=== PATIENT | female | born 1950 | race Caucasian/White ===

== ENCOUNTER → 2021-02-20 | Outpatient (CLI) | payer MEDICARE, BC ==
--- NOTE | 2021-02-22 18:26 | RAD ---
DATE: 02/20/2021 EXAM: MAMMO STEVE SCREENING BILATERAL HISTORY: Screening COMPARISON: 08/17/2017, 09/22/2018, 10/10/2019 This study was interpreted with the benefit of Computerized Aided Detection (CAD). Breast Density: HETERO The breast parenchyma is heterogenously dense, which could reduce sensitivity of mammography. Breast parenchyma level C. FINDINGS: No mass, suspicious calcification, or architectural distortion in either breast. IMPRESSION: No evidence of malignancy. BI-RADS CATEGORY: 1 NEGATIVE RECOMMENDED FOLLOW-UP: 12M 12 MONTH FOLLOW-UP PQRS compliance statement: Patient information was entered into a reminder system with a target due date for the next mammogram. Mammography is a sensitive method for finding small breast cancers, but it does not detect them all and is not a substitute for careful clinical examination. A negative mammogram does not negate a clinically suspicious finding and should not result in delay in biopsying a clinically suspicious abnormality. "Our facility is accredited by the [employer] Mammography Program."
== END ==
LOC: MAMMO 09:37
PROVIDERS: ATTEND Family Medicine
DX: Z12.31 Encounter for screening mammogram for malignant neoplasm of breast (principal)
CPT/HCPCS: 77063; 77067

== ENCOUNTER → 2021-02-27 | Outpatient (CLI) | payer MEDICARE ==
--- NOTE | 2021-02-27 12:01 | RAD ---
US THYROID History: Hypothyroidism, post ablation Comparison: None. Technique: Multiple grayscale and color Doppler images of the thyroid gland were obtained. Findings: Right thyroid lobe: 3.9 x 1.4 x 1.4 cm. Left thyroid lobe: 3.4 x 1.2 x 0.8 cm. Isthmus: 0.2 cm. Heterogenous, hyperemic thyroid with multiple small nodules. Nodule #1. Maximum size: 0.7 cm; Other 2 dimensions 0.6 x 0.5 cm. Location: Right lower pole. ACR TI-RADS risk category: TR4 (4-6 points): FNA if 1.5 cm, follow-up if 1-1.4 cm in 1, 2, 3, and 5 y ears. Nodule #2. Maximum size: 1.2 cm; Other 2 dimensions 1.0 x 0.8 cm. Location: Lower left pole. ACR TI-RADS risk category: TR4 (4-6 points): FNA if 1.5 cm, follow-up if 1-1.4 cm in 1, 2, 3, and 5 y ears. IMPRESSION: 1. Heterogeneous hyperemic thyroid with moderately suspicious 1.2 cm left thyroid nodule for which f ollow-up ultrasound in 1, 2, 3 and 5 years is recommended. ACR Thyroid Imaging, Reporting And Data System (TI-RADS): White Paper Of The ACR TI-RADS Committee. J ournal of the [employer], volume 14, issue 5, pages 587-595 (February 2017). Electronically signed by: Tonio Mcallister MD (02/27/2021 11:59 AM) [facility]
[2021-02-27 19:47] LABS: FREE T4 1.15 ng/dL (0.76-1.46); THYROID STIM HORMONE (TSH) 0.978 uIU/mL (0.358-3.740)
== END ==
LOC: US 09:48
PROVIDERS: ATTEND Internal Medicine Endocrinology, Diabetes & Metabolism
DX: E04.1 Nontoxic single thyroid nodule (principal); E89.0 Postprocedural hypothyroidism
CPT/HCPCS: 76536; 84439; 84443

== ENCOUNTER 2021-06-28 12:17 | Emergency (ER) | payer MEDICARE ==
[~2021-06-28] VITALS: Ht 170.2 cm; Wt 70.5 kg
--- NOTE | 2021-06-28 12:46 | EKG ---
[address] [address] Test Date: 2021-06-28 Test Time: 12:24:15 Pat Name: DUNCAN SALGADO Department: Room: Gender: F Client Resource Specialist: SHERIE : 1950 Requested By: ASHLEY VOGEL Order Number: [id number] Reading MD: Measurements Intervals [place] Rate: 71 P: 52 [place]: 162 QRS: 23 QRSD: 78 T: 24 QT: 376 QTc: 409 Interpretive Statements SINUS RHYTHM R-S TRANSITION ZONE IN V LEADS DISPLACED TO THE RIGHT OTHERWISE NORMAL ECG RI6.02 No previous ECG available for comparison
--- NOTE | 2021-06-28 13:01 | PHYS DOC ---
Past History Additional Past Medical Histor: thyroid disease/goiter, seasonal allergies, Past Surgical History: Cholecystectomy, Hysterectomy, Other Additional Past Surgical Histo: cardiac stents General Adult EDM: Chief Complaint: CHEST PAIN HPI: HPI: Patient is a 70-year-old female coming in for 3 days of left upper quadrant and left chest "gurgling". Patient states it is just under her left breast and has only moved a little bit. In the upward direction from her left upper quadrant to her current location under her left breast. Patient states it is not painful and comes and goes throughout the day. Patient says that is not there at night when she is sleeping or in the morning when she wakes up but usually starts occurring after she takes her medications with food. States is not exacerbated by exercise. Is concerned because she has a history of MO with 3 stents. Denies any nausea or vomiting has had no change in bowel movements, denies any fevers. Has had both doses of her Covid vaccine. Has had abdominal surgical history of an open hysterectomy 20 years ago. No history of food allergies Review of Systems: Review of Systems: All other systems within normal limits except for as noted in the HPI Physical Exam: PE: Constitutional: Well developed, well nourished, no acute distress, non-toxic appearance. [] HENT: Normocephalic, atraumatic, bilateral external ears normal, nose normal. [] Eyes: PERRLA, conjunctiva normal, no discharge. [] Neck: No rigidity, supple, no stridor. [] Cardiovascular: Regular rate and rhythm, brisk cap refill [] Lungs & Thorax: Non labored symmetric respirations, no tachypnea or respiratory distress [] Abdomen: Soft, nondistended. Skin: Warm, dry, no erythema, no rash. [] Back: Unremarkable Extremities: No deformities, range of motion grossly intact, no lower extremity edema [] Neurologic: Alert and oriented X 3, no focal deficits noted. [] Psychologic: Affect normal, judgement normal, mood normal. [] Current Patient Data: Vital Signs: Vital Signs Date Time Temp Pulse Resp B/P (MAP) Pulse Ox O2 Delivery O2 Flow Rate FiO2 06/28/21 12:49 98.7 68 16 146/74 (98) 99 Room Air EKG: EKG: Sinus rhythm, heart rate 70 bpm choledochal axis, no ST elevation depression [] Radiology/Procedures: Radiology/Procedures: [address] [address] IMAGING REPORT Signed PATIENT: DUNCAN SALGADO ACCOUNT: [id number] : 1950 LOCATION: ER AGE: 70 SEX: F EXAM STATUS: REG ER ORD. PHYSICIAN: ASHLEY VOGEL MD REASON: LUQ/left chest discomfort - 75mls omni 300 PROCEDURE: CT CHEST ABD PELVIS W/CONTRAST EXAMINATION: CT chest, abdomen and pelvis with IV contrast. INDICATION:70 years, Female, left chest and left upper quadrant abdominal discomfort. TECHNIQUE: Axial CT images of the chest, abdomen and pelvis were obtained. Coronal and sagittal reformatted performed. COMPARISON: None. Exposure: One or more of the following individualized dose reduction techniques were utilized for this examination: 1. Automated exposure control 2. Adjustment of the mA and/or kV according to patient size 3. Use of iterative reconstruction technique. FINDINGS: CHEST: There is a 9 mm inferior pole left thyroid nodule with peripheral calcification (series 4 image 19). Esophagus is unremarkable. No lymphadenopathy in the chest by size criteria. Normal cardiac size with no pericardial effusion. Severe coronary artery atherosclerotic calcifications. Normal caliber thoracic aorta and pulmonary arteries. Aberrant right subclavian artery. Central airways are patent. No focal consolidation, pleural effusion or pneumothorax. There is a 3 mm pulmonary nodule in the right lower lobe (series 4 image 57). There is a 2 mm pulmonary nodule in the right middle lobe. Minimal left upper lobe paraseptal emphysema. Subsegmental atelectasis versus scarring in the lingula. ABDOMEN/PELVIS: Normal size and morphology of the liver with homogeneous enhancement. No suspicious focal hepatic lesion. Cholecystectomy. No biliary ductal dilation. Unremarkable spleen and pancreas. Nodular thickening of the left adrenal gland without discrete nodule. Right adrenal gland is unremarkable. No hydronephrosis or nephrolithiasis in either kidney. Subcentimeter hypodensities in both renal cortices, too small to characterize, statistically representing cysts. No bowel obstruction or wall thickening. Uncomplicated duodenal diverticulum. Normal appendix. Moderate aortoiliac atherosclerotic calcifications without significant narrowing or dilatation. Mesenteric arteries and portal vein are patent. No pneumoperitoneum or ascites. Multiple prominent upper abdominal and retroperitoneal lymph nodes, nonspecific. The largest measures approximately 7 mm. Mildly enlarged right external iliac lymph node measures 1.0 cm in short axis. Unremarkable urinary bladder. Hysterectomy changes. No suspicious pelvic masses. MUSCULOSKELETAL: No acute process process. Multilevel degenerative changes in thoracolumbar spine, worst at L5-S1. IMPRESSION: 1. No acute abnormality in the chest, abdomen or pelvis. 2. Few sub-5 mm pulmonary nodules in the right lower and middle lobes. Fleischner Society guidelines for management of incidental pulmonary nodule (Radiology 2017): Multiple solid nodules < 6 mm: LOW-RISK patient (minimal or absent history of smoking and other known risk factors): No routine follow-up HIGH-RISK patient (history of smoking or other known risk factors): Optional CT at 12 months. 3. Severe coronary artery atherosclerotic calcifications. 4. Multiple prominent to mildly enlarged abdominopelvic lymph nodes, nonspecific and most likely reactive. 5. A 9 mm inferior pole left thyroid nodule with peripheral calcification. Recommend nonemergent thyroid ultrasound for further evaluation. Electronically signed by: Timbo Khan MD (06/28/2021 2:41 PM) [id number] DICTATED AND SIGNED BY: TIMBO KHAN MD DATE: 06/28/21 1429 CC: ASHLEY VOGEL MD; YVETTE BRODY MD ~MTH0 0 [] Heart Score: C/O Chest Pain: Yes HEART Score for Chest Pain: HEART Score for Chest Pain Response (Comments) Value History Slighlty/Non-Suspicious 0 ECG Normal 0 Age > 65 2 Risk Factors >3 Risk Factors or Hx CAD 2 Troponin < Normal Limit 0 Total 4 Risk Factors: Risk Factors: DM, Current or recent (<one month) smoker, HTN, HLP, family history of CAD, obesity. Risk Scores: Score 0 - 3: 2.5% MACE over next 6 weeks - Discharge Home Score 4 - 6: 20.3% MACE over next 6 weeks - Admit for Clinical Observation Score 7 - 10: 72.7% MACE over next 6 weeks - Early Invasive Strategies Course & Med Decision Making: Course & Med Decision Making Pertinent Labs and Imaging studies reviewed. (See chart for details) Unremarkable work-up with no identifiable high risk pathology, no identified c ause for patient's symptoms. Discussed food diary and follow-up with primary care. No arrhythmias on telemetry when patient was having symptoms. [] Dragon Disclaimer: Dragon Disclaimer: This electronic medical record was generated, in whole or in part, using a voice recognition dictation system. Departure Departure: Impression: Primary Impression: Chest discomfort Disposition: HOME / SELF CARE / HOMELESS Condition: STABLE Referrals: YVETTE BRODY MD (PCP) Patient Instructions: Chest Pain (Nonspecific) ASHLEY VOGEL MD Jun 28, 2021 13:01
[2021-06-28 13:10] LABS: BASO % 1 % (0-3); EOS # 0.1 x10^3/uL (0.0-0.7); EOS % 1 % (0-3); HEMATOCRIT 36.8 % (36.0-47.0); HEMOGLOBIN 12.4 g/dL (12.0-15.5); LYMPH # 1.8 x10^3/uL (1.0-4.8); LYMPH % 35 % (24-48); MEAN CORPUSCULAR HEMOGLOBIN 31 pg (25-35); MEAN CORPUSCULAR HGB CONC 34 g/dL (31-37); MEAN CORPUSCULAR VOLUME 92 fL (79-100); MONO # 0.6 x10^3/uL (0.0-1.1); MONO % 11 % (0-9); NEUT # 2.7 x10^3uL (1.8-7.7); NEUT % 52 % (31-73); PLATELET COUNT 182 x10^3/uL (140-400); RED BLOOD COUNT 4.01 x10^6/uL (3.50-5.40); RED CELL DISTRIBUTION WIDTH 13.2 % (11.5-14.5); WHITE BLOOD COUNT 5.2 x10^3/uL (4.0-11.0)
[2021-06-28 13:20] LABS: CALCIUM 9.2 mg/dL (8.5-10.1); CREATININE 0.9 mg/dL (0.6-1.0); GFR 62.3; POTASSIUM 4.3 mmol/L (3.5-5.1)
[2021-06-28 13:26] LABS: ALBUMIN 3.9 g/dL (3.4-5.0); ALBUMIN/GLOBULIN RATIO 1.1 (1.0-1.7); TOTAL BILIRUBIN 0.6 mg/dL (0.2-1.0); TOTAL PROTEIN 7.4 g/dL (6.4-8.2)
[2021-06-28] MEDS ORDERED: IOHEXOL 300 MG/ML 75 ML VIAL. IV ONE (13:30)
[2021-06-28] MEDS ORDERED: CONTRAST GIVEN. MC PRN (13:45)
--- NOTE | 2021-06-28 14:43 | RAD ---
EXAMINATION: CT chest, abdomen and pelvis with IV contrast. INDICATION:70 years, Female, left chest and left upper quadrant abdominal discomfort. TECHNIQUE: Axial CT images of the chest, abdomen and pelvis were obtained. Coronal and sagittal refor matted performed. COMPARISON: None. Exposure: One or more of the following individualized dose reduction techniques were utilized for thi s examination: 1. Automated exposure control 2. Adjustment of the mA and/or kV according to patient size 3. Use of iterative reconstruction technique. FINDINGS: CHEST: There is a 9 mm inferior pole left thyroid nodule with peripheral calcification (series 4 image 19). Esophagus is unremarkable. No lymphadenopathy in the chest by size criteria. Normal cardiac size with no pericardial effusion. Severe coronary artery atherosclerotic calcifications. Normal caliber thora cic aorta and pulmonary arteries. Aberrant right subclavian artery. Central airways are patent. No focal consolidation, pleural effusion or pneumothorax. There is a 3 mm pulmonary nodule in the right lower lobe (series 4 image 57). There is a 2 mm pulmonary nodule in th e right middle lobe. Minimal left upper lobe paraseptal emphysema. Subsegmental atelectasis versus sc arring in the lingula. ABDOMEN/PELVIS: Normal size and morphology of the liver with homogeneous enhancement. No suspicious focal hepatic les ion. Cholecystectomy. No biliary ductal dilation. Unremarkable spleen and pancreas. Nodular thickenin g of the left adrenal gland without discrete nodule. Right adrenal gland is unremarkable. No hydronep hrosis or nephrolithiasis in either kidney. Subcentimeter hypodensities in both renal cortices, too s mall to characterize, statistically representing cysts. No bowel obstruction or wall thickening. Uncomplicated duodenal diverticulum. Normal appendix. Modera te aortoiliac atherosclerotic calcifications without significant narrowing or dilatation. Mesenteric arteries and portal vein are patent. No pneumoperitoneum or ascites. Multiple prominent upper abdomin al and retroperitoneal lymph nodes, nonspecific. The largest measures approximately 7 mm. Mildly enla rged right external iliac lymph node measures 1.0 cm in short axis. Unremarkable urinary bladder. Hys terectomy changes. No suspicious pelvic masses. MUSCULOSKELETAL: No acute process process. Multilevel degenerative changes in thoracolumbar spine, worst at L5-S1. IMPRESSION: 1. No acute abnormality in the chest, abdomen or pelvis. 2. Few sub-5 mm pulmonary nodules in the right lower and middle lobes. Fleischner Society guidelines for management of incidental pulmonary nodule (Radiology 2017): Multipl e solid nodules < 6 mm: LOW-RISK patient (minimal or absent history of smoking and other known risk factors): No routine foll ow-up HIGH-RISK patient (history of smoking or other known risk factors): Optional CT at 12 months. 3. Severe coronary artery atherosclerotic calcifications. 4. Multiple prominent to mildly enlarged abdominopelvic lymph nodes, nonspecific and most likely reac tive. 5. A 9 mm inferior pole left thyroid nodule with peripheral calcification. Recommend nonemergent thyr oid ultrasound for further evaluation. Electronically signed by: Adelita Khan MD (06/28/2021 2:41 PM) [id number]
[2021-06-28 16:08] VITALS: BP 133/52
== END 2021-06-28 16:15 | disposition home or self-care (01) ==
LOC: ER 12:17
DX: R07.89 Other chest pain (principal); R10.12 Left upper quadrant pain; I25.2 Old myocardial infarction; Z90.49 Acquired absence of other specified parts of digestive tract; Z90.710 Acquired absence of both cervix and uterus
CPT/HCPCS: 36415; 71260; 74177; 80053; 83690; 84484; 85025; 93005; 99285; Q9967

== ENCOUNTER → 2021-08-21 | Outpatient (CLI) | payer MEDICARE ==
--- NOTE | 2021-08-21 09:26 | RAD ---
Examination: Ultrasound abdomen limited HISTORY: History of elevated liver enzymes COMPARISON: None available FINDINGS: The visualized pancreas grossly appears unremarkable. The echogenicity of the liver grossly appears u nremarkable. The liver length is 13.6 cm. The common bile duct measures 3 mm in transverse dimension. The gallbladder is not identified likely cholecystectomy changes.The right kidney measures 9.5 x 5.0 x 5.0 cm. The visualized IVC is within normal limits of dimension IMPRESSION: 1. Cholecystectomy changes. Otherwise unremarkable exam. Electronically signed by: Gabriele Mendez MD (08/21/2021 9:23 AM) [id number]
== END ==
LOC: US 07:53
PROVIDERS: ATTEND Family Medicine
DX: R74.8 Abnormal levels of other serum enzymes (principal); Z90.49 Acquired absence of other specified parts of digestive tract
CPT/HCPCS: 76705

== ENCOUNTER → 2022-03-05 | Outpatient (CLI) | payer MEDICARE ==
--- NOTE | 2022-03-05 15:59 | RAD ---
EXAM: BILATERAL DIGITAL 3D SCREENING MAMMOGRAPHY. HISTORY: Routine mammographic screening. TECHNIQUE: Bilateral digital 3D and tomographic images were obtained in CC and MLO projections. Compu ter-aided detection was applied. COMPARISON: 02/20/2021. COMPOSITION: C. The breasts are heterogeneously dense, which may obscure small masses. FINDINGS: There are no suspicious masses, microcalcifications or architectural distortion. The parenc hymal pattern is stable. Coarse calcifications are stable and benign. BI-RADS CATEGORY 2: Benign. RECOMMENDATION: 1. Routine screening mammography in one year. If mammography demonstrates dense breast tissue (heterogenously dense or extremely dense, category C or D), which could hide abnormalities, and if other risk factors for breast cancer have been identifi ed, supplemental screening tests that may be suggested by the ordering physician may be of benefit. D ense breast tissue, in and of itself, is a relatively common condition. Therefore, this information i s not provided to cause undue concern, but rather to raise awareness and to promote discussion with t he referring physician regarding the presence of other risk factors, in addition to dense breast tiss ue. The results of this mammography examination is provided to the patient and referring physician. T he patient should contact their referring physician if any questions or concerns exist regarding this report. PQRS compliance statement - Patient information was entered into a reminder system with a target due date for the next mammogram. "Our facility is accredited by the [employer] Mammography Program." Electronically signed by: Markos Shrestha MD (03/05/2022 2:10 PM) [id number]
== END ==
LOC: MAMMO 09:47
PROVIDERS: ATTEND Family Medicine
DX: Z12.31 Encounter for screening mammogram for malignant neoplasm of breast (principal)
CPT/HCPCS: 77063; 77067

== ENCOUNTER → 2022-03-10 | Outpatient (CLI) | payer MEDICARE ==
--- NOTE | 2022-03-10 14:48 | RAD ---
US THYROID History: Reason: NONTOXIC MULTINODULAR GOITER / Spl. Instructions: / History: Comparison: February 27, 2021 Technique: Multiple grayscale and color Doppler images of the thyroid gland were obtained. Findings: Right thyroid lobe: 3.0 x 1.3 x 1.0 cm. Homogeneous echotexture. Left thyroid lobe: 2.9 x 1.2 x 0.9 cm. Homogeneous echotexture. Isthmus: 0.3 cm. -Mixed cystic and solid right inferior nodule measures 0.6 x 0.6 x 0.5 cm. TI-RADS 3. Similar overall size compared to prior with increased cystic changes -Mixed cystic and solid right inferior nodule measures 0.6 x 0.8 x 0.6 cm. TI-RADS 3. Increased size with increasing cystic changes. -Solid hypoechoic left inferior nodule measures 1.2 x 0.9 x 0.7 cm. TI-RADS 4. Similar compared to pr ior. ACR Thyroid Imaging, Reporting And Data System (TI-RADS): White Paper Of The ACR TI-RADS Committee. J ournal of the [employer], volume 14, issue 5, pages 587-595 (February 2017). IMPRESSION: 1. Variable change of TI-RADS 3 and 4 nodules. Recommend one-year ultrasound follow-up. Electronically signed by: Gregory Jones DO (03/10/2022 2:45 PM) [id number]
== END ==
LOC: US 09:47
PROVIDERS: ATTEND Internal Medicine Endocrinology, Diabetes & Metabolism
DX: E04.2 Nontoxic multinodular goiter (principal)
CPT/HCPCS: 76536